=== PATIENT | female | born 1980 | race American Indian/Alaskan Native ===

== ENCOUNTER 2016-10-28 19:24 | Inpatient (IN) | payer BC ==
[2016-10-28] MEDS ORDERED: AMBIEN PO PRN (21:05)
[2016-10-28] MEDS ORDERED: ALUM-MAG HYDROX-SIMETH 200-200-20MG/5ML PO PRN (21:05)
[2016-10-28] MEDS ORDERED: SENOKOT S PO PRN (21:05)
[2016-10-28] MEDS ORDERED: COLACE PO PRN (21:05)
[2016-10-28] MEDS ORDERED: MILK OF MAGNESIA PO PRN (21:05)
[2016-10-28] MEDS ORDERED: DEEP SEA NS PRN (21:05)
[2016-10-28] MEDS ORDERED: TYLENOL PO PRN (21:05)
[2016-10-28] MEDS ORDERED: ZOFRAN IV PRN (21:05)
[2016-10-28] MEDS ORDERED: MYLICON PO PRN (21:05)
[2016-10-28] MEDS ORDERED: APRESOLINE ONE (21:07)
[2016-10-28] MEDS ORDERED: APRESOLINE IV PRN (21:41)
[2016-10-28] MEDS: NORMODYNE PO SCH (22:00)
[2016-10-28] MEDS ORDERED: LACTATED RINGERS 1,000 ML IV SCH (22:00)
[2016-10-28] MEDS ORDERED: CELESTONE SOLUSPAN IM SCH (22:00)
[2016-10-28 22:26] LABS: Eosinophils % (Auto) 0.7 % (0.0-4.3); Hematocrit 34.7 % (30.3-42.9); Hemoglobin 11.1 gm/dl (10.1-14.3); Mean Corpuscular HGB Conc 32 % (30-34); Mean Corpuscular Volume 73 fl (79-97); Platelet Count 208 K/mm3 (140-440); Red Blood Count 4.77 M/mm3 (3.65-5.03); White Blood Count 9.4 K/mm3 (4.5-11.0)
[2016-10-28 22:32] LABS: Mean Corpuscular Hemoglobin 23 pg (28-32)
[2016-10-28 22:36] LABS: Alanine Aminotransferase 19 units/L (7-56); Albumin 2.8 g/dL (3.9-5); Albumin/Globulin Ratio 0.8 %; Alkaline Phosphatase 125 units/L (35-129); Anion Gap 18 mmol/L; BUN/Creatinine Ratio 13.75; Blood Urea Nitrogen 11 mg/dL (7-17); Calcium 8.6 mg/dL (8.4-10.2); Carbon Dioxide 21 mmol/L (22-30); Chloride 102.6 mmol/L (98-107); Glucose 102 mg/dL (65-100); Lactate Dehydrogenase 267 units/L (91-180); Sodium 138 mmol/L (137-145); Total Protein 6.3 g/dL (6.3-8.2); Uric Acid 8.5 mg/dL (3.5-7.6)
[2016-10-28 22:40] LABS: Bacteria,Urine 4+ /HPF (Negative); Bilirubin,Urine NEG (Negative); Blood,Urine MOD (Negative); Ketones,Urine NEG (Negative); Leukocyte Esterase,Urine TR (Negative); Nitrite,Urine NEG (Negative); Urobilinogen,Urine < 2.0 mg/dL (<2.0)
--- NOTE | 2016-10-29 07:35 | Admit Criteria Form ---
Admission Criteria Documentation: OBSTETRIC AND GYNECOLOGIC DISEASE GRG Clinical Indications for Admission to Inpatient Care (Place 'X' for any and all applicable criteria): Hospital admission is needed for appropriate care of the patient because of 1 or more of the following (1)(2)(3): [ ]I. Hemodynamic instability, as indicated by 1 or more of the following (1)( 2)(3)(4)(5): [ ]a) Vital signs or other findings not as expected for chronic patient condition or baseline [ ]b) Instability indicated by 1 or more of the following: [ ]i) Hypotension [ ]ii) Symptomatic tachycardia unresponsive to treatment (eg, analgesia, fluids, sedation as indicated) [ ]iii) Inadequate perfusion indicated by 1 or more of the following: [ ]A. Lactic acidosis (greater than 2 mmol/ L) [ ]B. New abnormal capillary refill ( greater than 3 seconds) [ ]C. Reduced urine output [ ]D. New altered mental status [ ]iv) Orthostatic vital sign changes unresponsive to treatment (eg, fluids) [ ]v) Multiple IV fluid boluses required to maintain adequate blood pressure or perfusion [ ]vi) IV inotropic or vasopressor medication required to maintain adequate blood pressure or perfusion [ ]II. Obstetric infection requiring hospitalization indicated by 1 or more of the following(13)(14): [ ]a) Chorioamnionitis [ ]b) Endometritis (except mild endometritis) [ ]c) Pelvic abscess [ ]d) Peritonitis [ ]e) Septic pelvic thrombophlebitis [ ]III. Amniotic fluid or pulmonary embolism(4)(5)(6) [ ]IV. Suspected peritonitis or ectopic requiring monitoring beyond scope of 24 hours or observation care(7)(8) [ ]V. compromise requiring hospitalization indicated by ALL of the following(9)(10): [ ]a) compromise indicated by 1 or more of the following(11): [ ]i) Abnormal heart rate monitoring [ ]ii) Abnormal contraction stress test [ ]iii) Abnormal biophysical profile [ ]iv) Abnormal Doppler flow in vessels (ie, Doppler velocimetry) (12) [ ]b) Persistence of compromise indicators during evaluation and observation monitoring [ ]. Ovarian hyperstimulation syndrome requiring hospitalization[A] indicated by ALL of the following(15): [ ]a) Recent ovarian stimulation with gonadotropins, or evidence on ultrasound of spontaneous emergence of large number of ovarian follicles [ ]b) Evidence of severe ovarian hyperstimulation syndrome indicated by 1 or more of the following: [ ]i) Abdominal pain unresponsive to oral therapy [ ]ii) Acute respiratory distress syndrome [ ]iii) Electrolyte imbalance ( eg, hyponatremia, hyperkalemia) [ ]iv) Elevated liver enzymes [ ]v) Evidence of thromboembolism [ ]vi) Hemoconcentration (hematocrit greater than 45 % (0.45)) [ ]vii) Inability to maintain oral intake adequate to prevent hemoconcentration [ ]viii) Marked hypotension from baseline (eg, SBP 20 mmHg below patients usual pressure) [ ]ix) Oliguria or anuria [ ]x) Ovarian torsion [ ]xi) Pleural or pericardial effusion on x-ray or echocardiogram [ ]xii) Rapid increase in serum creatinine to greater than 1.2 mg/dL (106 micromoles/L) or creatinine clearance less than 50 mL/min/1.73m2 (0.84 mL/ sec/1.73m2) [ ]xiii) Ruptured ovarian cyst with hemorrhage [ ]xiv) Severe abdominal pain or peritoneal signs [ ]xv) Tense ascites that cannot be managed with paracentesis in outpatient setting [ ]VII.Pelvic infection requiring hospitalization indicated by 1 or more of the following (16): [ ]a) Outpatient treatment has failed or is not appropriate (eg, inpatient monitoring required) [ ]b) Pelvic abscess [ ]c) Surgical emergency cannot be excluded (eg, rigid abdomen) [ ]d) Vomiting precluding outpatient and observation care management VIII. loss complications requiring inpatient medical treatment indicated by 1 or more of the following (4)(7)(9): [ ]a) Fever [ ]b) Peritonitis [ ]c) Sepsis [ ]d) Severe abdominal pain [ ]IX. or patient requiring monitoring for severe heart failure, pulmonary disease, or other comorbid condition (eg, peripartum cardiomyopathy) (4)(17) [ ]X. patient with rupture of membranes requiring hospitalization indicated by ANY ONE of the following: [ ]a) Chorioamnionitis, cloudy amniotic fluid, or other evidence of infection [ ]b) compromise or other need for monitoring (11) [ ]c) Gestation longer than 23 weeks and ANY ONE of the following: [ ]i) Abnormal (noncephalic) presentation [ ]ii) Inadequate home environment (eg, home too far from hospital, unable to rapidly return to hospital) [ ]d) Temperature greater than 100.4 degrees F (38 degrees C)( oral) [ ]e) Threatened labor requiring monitoring beyond scope (eg, over 24 hours) of observation Care [ ] XI. complications, including severe lacerations, infections, or retained placenta (19) [ ] XII.Uterine bleeding with high-risk features indicated by ANY ONE of the following (4): [ ]a) Active major hemorrhage (eg, hemorrhage) [ ]b) Coagulopathy with active bleeding [ ]c) Gestational trophoblastic disease (eg, molar ) (20 ) [ ]d) (longer than 23 weeks) and ANY ONE of the following: [ ]i) Pain [ ]ii) Placental abruption, known or suspected [ ]iii) Placenta accrete, known or suspected(21) [ ]iv) Placenta previa, known or suspected [ ]v) Vasa previa [ ]e) Severe anemia [X ]XIII. Obstetric or Gynecologic Disease, condition or symptom for which ANY ONE of the following: [ X]a) Emergency and observation care have failed or are not considered appropriate ( Also use General Criteria: Observation Care Criteria as appropriate) [ ]b) Presence of a General Admission Criteria or Pediatric General Admission Criteria The original [facility] content created by [facility] has been revised. The portions of the content which have been revised are identified through the use of italic text or in bold, and [facility] has neither reviewed nor approved the modified material.All other unmodified content is copyright [facility]. Please see references footnoted in the original [facility] edition 2016
--- NOTE | 2016-10-29 09:19 | History and Physical Report ---
History of Present Illness Date of examination: 10/29/16 Date of admission: 10/28/16 21:05 Chief complaint: Preeclampsia and Class C DM History of present illness: 35-year-old at 33+6 weeks who presents for a primary delivery secondary to multiple obstetrical complications. The patient's is significant for a twin gestation complicated by type 2 diabetes requiring the use of subcutaneous insulin. The patient's history is also significant for chronic hypertension currently on labetalol with current findings significant with preeclampsia. The patient is advanced maternal age and has iron deficiency anemia treated with by mouth iron therapy. She initiated her care in the first trimester. GBS status is unknown. The recommendation from maternal medicine was to have the patient delivered for worsening clinical status. Past History Past Medical History: hypertension, diabetes, other (obesity) Past Surgical History: D&C Social history: - Obstetrical History Expected Date of Delivery: 12/11/16 Actual Gestation: 33 Week(s) 6 Day(s) : 3 Para: 0 Hx # Term Pregnancies: 0 Number of Pregnancies: 0 Spontaneous Abortions: 2 Induced : 0 Number of Living Children: 0 Medications and Allergies Allergies Allergy/AdvReac Type Severity Reaction Status Date / Time No Known Allergies Allergy Unverified 05/14/15 07:52 Home Medications Medication Instructions Recorded Confirmed Last Taken Type Aspirin BABY CHEW TAB 81 mg PO DAILY 10/29/16 10/29/16 Unknown History Colace CAP 100 mg PO DAILY 10/29/16 10/29/16 Unknown History Ferrous Sulfate 325 mg PO BID 10/29/16 10/29/16 10/28/16 09:00 History Insulin NPH, Human 24 units SUB-Q QAMDIAB 10/29/16 10/29/16 10/28/16 09:00 History Insulin NPH/Regular 24 units SUB-Q QHS 10/29/16 10/29/16 10/27/16 21:00 History Insulin Regular, Human 32 units SUB-Q QAMDIAB 10/29/16 10/29/16 10/28/16 09:00 History Labetalol 100 mg PO BID 10/29/16 10/29/16 10/28/16 09:00 History Vitamin 1 tab PO DAILY 10/29/16 10/29/16 10/28/16 09:00 History Active Meds: Active Medications Acetaminophen (Tylenol) 650 mg PO Q4H PRN PRN Reason: Pain MILD(1-3)/Fever >100.5/JAMES Al Hydrox/Mg Hydrox/Simethicone (Alum-Mag Hydrox-Simeth [phone]/5ml) 30 ml PO Q6H PRN PRN Reason: Indigestion Betamethasone Acet/Betameth SodPhos (Celestone Soluspan) 12 mg IM Q24H [facility] Stop: 10/29/16 22:01 Last Admin: 10/28/16 22:07 Dose: 12 mg Docusate Sodium (Colace) 100 mg PO Q12H PRN PRN Reason: Constipation Hydralazine HCl (Apresoline) 5 mg IV Q30MIN PRN PRN Reason: severe hypertension Last Admin: 10/28/16 21:26 Dose: 5 mg Lactated Ringer's (Lactated Ringers) 1,000 mls @ 75 mls/hr IV DIRECT ALESSIA Last Admin: 10/28/16 22:05 Dose: 75 mls/hr Insulin Human NPH (Novolin N) 24 unit SUB-Q QHS [facility] Last Admin: 10/29/16 00:59 Dose: 24 unit Insulin Human NPH (Novolin N) 24 unit SUB-Q QAMDIAB [facility] Insulin Human Regular (Novolin R) 32 units SUB-Q QAMDIAB [facility] Insulin Human Regular (Novolin R) 24 units SUB-Q QHS [facility] Insulin Human Regular (Novolin R) 16 units SUB-Q 1700 ALESSIA Labetalol HCl (Normodyne) 100 mg PO BID [facility] Last Admin: 10/28/16 22:00 Dose: 100 mg Magnesium Hydroxide (Milk Of Magnesia) 30 ml PO QHS PRN PRN Reason: Laxative Effect Multivitamins/Iron/Calcium ( Vitamin) 1 each PO QDAY [facility] Ondansetron HCl (Zofran) 4 mg IV Q6H PRN PRN Reason: Nausea And Vomiting Senna/Docusate Sodium (Senokot S) 2 tab PO Q12H PRN PRN Reason: Laxative Effect Simethicone (Mylicon) 80 mg PO Q6H PRN PRN Reason: Gas pain Sodium Chloride (Deep Sea) 2 spray NS Q4H PRN PRN Reason: Congestion Zolpidem Tartrate (Ambien) 10 mg PO QHS PRN PRN Reason: Sleep Last Admin: 10/29/16 03:17 Dose: 10 mg Review of Systems All systems: negative - Vital Signs Vital signs: Vital Signs Pulse BP 92 H 157/96 10/28/16 20:14 10/28/16 20:14 Temp Pulse Resp BP Pulse Ox 99 F 108 H 12 143/79 99 10/29/16 07:56 10/29/16 09:13 10/29/16 07:56 10/29/16 08:57 10/29/16 09:13 - Physical Exam Breasts: Positive: deferred Cardiovascular: Regular rate Lungs: Positive: Clear to auscultation Abdomen: Positive: normal appearance, soft Results Result Diagrams: 10/28/16 21:20 10/28/16 21:20 Abnormal lab results 10/28/16 10/28/16 10/28/16 Range/Units 21:09 21:20 21:20 MCV 73 L (79-97) fl MCH 23 L (28-32) pg RDW 24.0 H (13.2-15.2) % [place] % (Auto) 7.7 H (0.0-7.3) % Seg Neutrophils % 70.4 H (40.0-70.0) % Carbon Dioxide 21 L (22-30) mmol/L Glucose 102 H (65-100) mg/dL POC Glucose 107 H (70-105) Uric Acid 8.5 H (3.5-7.6) mg/dL Lactate Dehydrogenase 267 H (91-180) units/L Albumin 2.8 L (3.9-5) g/dL Ur Total Protein 24 Hr (2-200) Urine Total Protein (5-11.8) mg/dL 10/28/16 10/29/16 Range/Units 21:40 05:08 MCV (79-97) fl MCH (28-32) pg RDW (13.2-15.2) % [place] % (Auto) (0.0-7.3) % Seg Neutrophils % (40.0-70.0) % Carbon Dioxide (22-30) mmol/L Glucose (65-100) mg/dL POC Glucose 126 H (70-105) Uric Acid (3.5-7.6) mg/dL Lactate Dehydrogenase (91-180) units/L Albumin (3.9-5) g/dL Ur Total Protein 24 Hr 693.00 H (2-200) Urine Total Protein 33 H (5-11.8) mg/dL All other labs normal. Assessment and Plan - Patient Problems (1) Pre-eclampsia affecting with pre-existing hypertension, delivered , current hospitalization Current Visit: Yes Status: Acute Plan to address problem: Will proceed with delivery of twin gestation per maternal medicine recommendation (2) Twin gestation, monochorionic diamniotic Current Visit: Yes Status: Acute Qualifiers: Trimester: T (3) Insulin dependent diabetes mellitus Current Visit: Yes Status: Acute (4) Chronic hypertension affecting Current Visit: Yes Status: Acute (5) Unstable lie of fetus Current Visit: Yes Status: Acute Qualifiers: Fetus number: F
[2016-10-29] MEDS ORDERED: PRENATAL VITAMIN PO SCH (10:00)
[2016-10-29] MEDS: NORMODYNE PO SCH ×2 (10:17→22:28)
[2016-10-29] MEDS ORDERED: ZOFRAN IV PRN (12:04)
[2016-10-29] MEDS ORDERED: DILAUDID IV PRN (12:04)
[2016-10-29] MEDS ORDERED: NARCAN 0.4 MG/1 ML IV PRN ×2 (12:04→14:52)
[2016-10-29] MEDS ORDERED: BENADRYL IV PRN (12:04)
--- NOTE | 2016-10-29 12:04 | Anesthesia Consultation ---
Anesthesia Consult and Med Hx Date of service: 10/29/16 - Airway Anesthetic Teeth Evaluation: Good ROM Head & Neck: Adequate Mental/Hyoid Distance: Adequate Mallampati Class: Class II Intubation Access Assessment: Probably Good - Pre-Operative Health Status ASA Pre-Surgery Classification: ASA3 Proposed Anesthetic Plan: Epidural, Spinal - Pulmonary Hx Smoking: Yes (socially) Hx Asthma: Yes (as a child) COPD: No Hx Pneumonia: No Hx Sleep Apnea: No - Cardiovascular System Hx Hypertension: Yes (chtn) - Central Nervous System Hx Seizures: No Hx Psychiatric Problems: No - Gastrointestinal Hx Gastroesophageal Reflux Disease: Yes (Mild) - Endocrine Hx Renal Disease: No Hx End Stage Renal Disease: No Hx Insulin Dependent Diabetes: Yes Hx Non-Insulin Dependent Diabetes: Yes Hx Thyroid Disease: No Hx Hypothyroidism: No Hx Hyperthyroidism: No - Hematic Hx Anemia: Yes Hx Sickle Cell Disease: No (trait) - Other Systems Hx Alcohol Use: No Hx Cancer: No Hx Obesity: Yes (BMI 45.7) - Additional Comments Anesthesia Medical History Comments: Twin
[2016-10-29] MEDS ORDERED: TORADOL IV PRN (12:05)
--- NOTE | 2016-10-29 12:06 | Anesthesia Day of Surgery ---
Anesthesia Day of Surgery - Day of Surgery Patient Examined: Yes Patient H&P Reviewed: Yes Patient is NPO: Yes Beta Blockers: Yes
[2016-10-29] MEDS ORDERED: REGLAN IV ONE (12:36)
[2016-10-29] MEDS ORDERED: PEPCID IV ONE (12:36)
[2016-10-29] MEDS ORDERED: BICITRA PO ONE (12:36)
[2016-10-29] MEDS ORDERED: PITOCin/NS 20 UNIT/1000ML DRIP 20 UNITS/1,000 ML BAG IV SCH (13:00)
[2016-10-29] MEDS ORDERED: SODIUM CHLORIDE FLUSH SYRINGE 10 ML IV SCH ×2 (13:00→15:00)
[2016-10-29] MEDS ORDERED: ANCEF/STERILE WATER 2 GM/20 ML 2 GM/20 ML SYRINGE IV NR (13:00)
[2016-10-29] MEDS ORDERED: LACTATED RINGERS 1,000 ML IV SCH ×2 (13:00→15:00)
[2016-10-29] MEDS ORDERED: MORPHINE ONE (13:08)
[2016-10-29] MEDS ORDERED: ANCEF/STERILE WATER 2 GM/20 ML IV ONE (13:33)
[2016-10-29] MEDS ORDERED: WATER FOR IRRIG STERILE IR ONE (13:40)
[2016-10-29] MEDS ORDERED: NACL 0.9% IR ONE (13:40)
[2016-10-29] MEDS ORDERED: ZOFRAN ONE (14:12)
--- NOTE | 2016-10-29 14:43 | Procedure Note ---
OB Delivery Note - Delivery Date of Delivery: 10/29/16 Surgeon: FRANCO LEAL Estimated blood loss: other (800ml) - Section Preop diagnosis: other malpresentation, other (preeclampsia) Postop diagnosis: same section procedure: section, primary low transverse Disposition: PACU - Infant A at 1 minute: 7 at 5 minutes: 8 Gender: Female (weight 4 lbs. 12 oz.) B at 1 minute: 8 at 5 minutes: 8 Gender: Female (weight 4 lbs. 12 oz.)
[2016-10-29] MEDS: PITOCin/NS 20 UNIT/1000ML DRIP 20 UNITS/1,000 ML BAG IV SCH (14:44)
--- NOTE | 2016-10-29 14:50 | Operative Report ---
Operative Report Operative Report: Date of surgery: 10/29/2016 Preoperative diagnosis: at 33+6 weeks; chronic hypertension exacerbated by preeclampsia; insulin-dependent diabetes mellitus; dichorionic monoamniotic twin gestation; malpresentation of twin gestation Postoperative diagnosis: Same as above Procedure: Primary low-transverse delivery Surgeon: Lara Sheppard M.D. Anesthesia: Regional Estimated blood loss: 800 mL Findings: Twin A is a liveborn female with Apgars of 7 and 8 weight 7 lbs. 12 oz. Twin B is a liveborn female with Apgars of 8 and 8 weight 4 lbs. 12 oz. Indications: 35-year-old 0-0 at 33+6 weeks with a history complicated by multiple conditions to include insulin-dependent diabetes mellitus, chronic hypertension, preeclampsia, and malpresentation of the twin gestation. The patient was evaluated by maternal- medicine and was determined that the patient should be delivered Procedure: The patient was taken to the operating room and given regional anesthesia without complication. She was prepped and draped in a normal sterile fashion. A Pfannenstiel skin incision was made down to layer the fascia which was nicked in the midline extended laterally with the Bovie cautery. The superior aspect of the rectus fascia was grasped with Cachorro clamps x2 and the rectus muscles off sharply. This was done in inferior fashion as well. The rectus muscle midline and peritoneum entered bluntly. An Rick retractor was then inserted. A bladder blade was placed. The vesicouterine peritoneum was then entered sharply with Metzenbaum scissors. A bladder flap was created digitally. A low transverse uterine incision was then made and extended digitally. There was clear fluid upon entry into the uterine cavity. The amniotic sac of twin A was ruptured with the presenting part to be left arm. A manual version was performed in order to deliver the infant and vertex presentation. The cord was clamped and cut x2 and was passed off to pediatrics. The amniotic sac of twin B was ruptured with evidence of clear fluid. The presenting part of twin B were the feet. The lower extremities were delivered easily through the incision. The body and head delivered without difficulty. The cord was clamped and cut and the was passed to pediatrics and attendants. The placenta was then manually extracted. The umbilical cords were labeled with cord clamps. The uterus was then exteriorized and cleared of clots and debris. The uterine incision was then closed in a running locked fashion with 0 Vicryl additional imbricating stitch was applied for 2 layer closure. The posterior cul-de-sac was then copiously irrigated. The uterus was replaced back into the abdomen and pelvis were the gutters were then irrigated. The Rick retractor was then removed. The peritoneum was then reapproximated with 3-0 Vicryl incorporating the rectus muscle. The fascia was then closed with 0 Vicryl in a running fashion. The skin was then reapproximated with 3-0 Monocryl on a Braden needle subcuticular fashion. Steri-Strips to place across the incision and a Crede procedures performed at the end of the surgery. A pressure dressing was applied to the incision. The surgery productive of a twin A is a liveborn female with Apgars of 7 and 8 and a weight of 4 lbs. 12 oz. twin B is a liveborn female with Apgars of 8 and 8 weight 4 lbs. 12 oz. The patient was taken to the recovery room in stable condition. All sponge laps and needle counts correct x2.
[2016-10-29] MEDS ORDERED: TUCKS PAD TP PRN (14:52)
[2016-10-29] MEDS ORDERED: LANSINOH TP PRN (14:52)
[2016-10-29] MEDS ORDERED: MAGNESIUM SULFATE 4GM/100ML 4 GM/100 ML BAG IV ONE (15:00)
[2016-10-29] MEDS: MAGNESIUM SULFATE 40GM/1000ML 40 GM/1,000 ML BAG IV SCH (15:41)
--- NOTE | 2016-10-29 15:52 | Post Anesthesia Evaluation ---
- Post Anesthesia Evaluation Patient Participated: Yes Airway Patent: Yes Stable Respiratory Function: Yes Temp > 96.8F: Yes Pain Manageable: Yes Adequeate Hydration: Yes Anesthesia Complications: No Block Receding Appropriately: Yes
[2016-10-29] MEDS ORDERED: PHENERGAN PO PRN (15:53)
[2016-10-29] MEDS ORDERED: PHENERGAN PR PRN (15:53)
[2016-10-29] MEDS ORDERED: D50W (25GM) IV PRN (18:09)
[2016-10-30] MEDS: MOTRIN PO PRN ×4 (02:06→22:21)
[2016-10-30] MEDS: PITOCin/NS 20 UNIT/1000ML DRIP 20 UNITS/1,000 ML BAG IV SCH (04:38)
[2016-10-30 05:57] LABS: Hematocrit 29.4 % (30.3-42.9); Hemoglobin 9.4 gm/dl (10.1-14.3)
[2016-10-30] MEDS: NOVOLOG SUB-Q SCH ×4 (08:10→22:21)
[2016-10-30] MEDS ORDERED: BENADRYL PO PRN (08:22)
--- NOTE | 2016-10-30 08:41 | Progress Note ---
Assessment and Plan - Patient Problems (1) Pre-eclampsia affecting with pre-existing hypertension, delivered , current hospitalization Current Visit: Yes Status: Acute Plan to address problem: Patient will complete 24 hours of magnesium therapy Will continue to monitor glucose and blood pressure closely Continue sliding scale insulin until patient resumes regular diet (2) Twin gestation, monochorionic diamniotic Current Visit: Yes Status: Acute Qualifiers: Trimester: T (3) Insulin dependent diabetes mellitus Current Visit: Yes Status: Acute (4) Chronic hypertension affecting Current Visit: Yes Status: Acute (5) Unstable lie of fetus Current Visit: Yes Status: Acute Qualifiers: Fetus number: F Subjective - Subjective Date of service: 10/30/16 Interval history: The patient is without any significant complaints. She is currently receiving magnesium therapy for preeclampsia. She is also receiving a sliding scale insulin to maintain glucose levels which would have been in normal range. She states that her pain has been well controlled. Patient reports: no flatus : in NICU Objective - Vital Signs Latest vital signs: Vital Signs Temp Pulse Pulse Resp BP BP Pulse Ox 10/30/16 08:37 18 10/30/16 06:14 98.2 F 85 20 127/68 10/30/16 04:30 98.4 F 76 20 124/73 10/30/16 02:16 98.6 F 101 H 20 134/67 10/30/16 00:00 98.4 F 104 H 20 120/72 10/29/16 22:28 97 H 148/75 10/29/16 22:15 148/75 10/29/16 20:00 98.1 F 105 H 20 140/70 10/29/16 18:26 98.2 F 98 H 20 140/66 10/29/16 17:00 97.7 F 98 H 18 138/81 10/29/16 16:25 97.9 F 17 10/29/16 16:20 89 22 137/77 99 10/29/16 16:15 86 20 137/77 99 10/29/16 16:10 96 H 15 141/86 100 10/29/16 16:05 92 H 26 H 141/86 99 10/29/16 16:00 95 H 21 139/85 99 10/29/16 15:55 89 17 141/77 100 10/29/16 15:50 92 H 26 H 149/87 97 10/29/16 15:45 89 13 136/73 100 10/29/16 15:40 100 H 13 116/71 99 10/29/16 15:35 97 H 13 141/81 99 10/29/16 15:30 100 H 20 128/62 99 10/29/16 15:25 94 H 13 137/82 99 10/29/16 15:20 95 H 18 135/75 98 10/29/16 15:15 79 25 H 136/73 97 10/29/16 15:10 83 14 124/77 98 10/29/16 15:05 100 H 14 124/84 98 10/29/16 15:00 91 H 26 H 135/75 98 10/29/16 14:55 91 H 24 133/77 100 10/29/16 14:50 99 H 16 131/68 100 10/29/16 14:45 104 H 12 130/72 100 10/29/16 14:43 100 10/29/16 12:27 99 H 149/72 10/29/16 11:59 102 H 132/75 10/29/16 11:28 100 H 158/72 10/29/16 10:57 97 H 136/74 10/29/16 10:54 98 H 100 10/29/16 10:49 100 H 99 10/29/16 10:44 101 H 98 10/29/16 10:39 106 H 100 10/29/16 10:34 101 H 99 10/29/16 10:29 100 H 160/75 99 10/29/16 10:24 100 H 99 10/29/16 10:19 98 H 100 10/29/16 10:17 98 H 176/82 10/29/16 10:14 102 H 100 10/29/16 10:09 95 H 100 10/29/16 10:04 94 H 100 10/29/16 09:59 96 H 176/82 99 10/29/16 09:33 94 H 100 10/29/16 09:28 96 H 93 10/29/16 09:27 99 H 143/79 10/29/16 09:23 94 H 100 10/29/16 09:18 98 H 100 10/29/16 09:13 108 H 99 10/29/16 09:05 102 H 98 10/29/16 09:00 98 H 99 10/29/16 08:57 92 H 143/79 10/29/16 08:55 90 100 10/29/16 08:50 92 H 100 10/29/16 08:45 88 100 10/29/16 08:40 98 H 100 Intake and Output 10/29/16 10/30/16 10/30/16 22:59 06:59 14:59 Intake Total 620 120 Output Total 500 1500 Balance 120 -1380 Intake: IV 500 Oral 120 Intake, Free Water 120 Output: Urine 500 1500 Indwelling Catheter 300 1500 Other: Total, Intake Amount 120 Total, Output Amount 300 900 Voiding Method Indwelling Catheter Estimated Blood Loss 1,000 - Exam Abdomen: Present: normal appearance, soft Incision: Present: dressed - Labs Labs: Abnormal lab results 10/30/16 Range/Units 05:26 Hgb 9.4 L (10.1-14.3) gm/dl Hct 29.4 L (30.3-42.9) %
[2016-10-30] MEDS: NORMODYNE PO SCH ×2 (11:14→22:20)
[2016-10-30] MEDS: MYLICON PO PRN ×2 (11:14→18:12)
[2016-10-30] MEDS: PRENATAL VITAMIN PO SCH (11:14)
[2016-10-30] MEDS: MAGNESIUM SULFATE 40GM/1000ML 40 GM/1,000 ML BAG IV SCH (11:16)
[2016-10-31] MEDS: MOTRIN PO PRN (05:32)
[2016-10-31] MEDS ORDERED: BOOSTRIX IM ONE (06:00)
[2016-10-31] MEDS: NORMODYNE PO SCH ×2 (11:00→22:36)
[2016-10-31] MEDS: PRENATAL VITAMIN PO SCH (11:00)
--- NOTE | 2016-10-31 16:13 | Progress Note ---
Assessment and Plan O; BP: 140/70-90 BS: 127, 144, 169, 112 PP H/H: 9.4/29.4 A: POD # 2 S/P primary C/S @ 33 weeks twins with preeclampsia Diabetic CHTN with superimposed preeclampsia P: Continue PP orders order abd binder Subjective - Subjective Date of service: 10/31/16 Patient reports: appetite normal, voiding normally, flatus, pain poorly controlled (only taking Motrin for pain), ambulating normally : doing well, in NICU Objective - Vital Signs Latest vital signs: Vital Signs Temp Pulse Pulse Resp BP BP 10/31/16 11:50 98.7 F 90 20 144/72 10/31/16 08:19 98.9 F 88 20 136/70 10/31/16 04:10 98.9 F 86 20 148/70 10/31/16 00:00 98.4 F 88 20 152/88 10/30/16 22:20 78 142/95 10/30/16 20:00 98.6 F 106 H 20 149/86 10/30/16 16:13 18 Intake and Output 10/31/16 10/31/16 10/31/16 06:59 14:59 22:59 Intake Total 480 600 Balance 480 600 Intake: Oral 480 360 Intake, Free Water 240 Other: Total, Intake Amount 480 360 # Voids Void 1 1 # Bowel Movements 1 - Exam Breasts: Present: deferred Lungs: Present: Normal air movement Abdomen: Present: normal appearance, soft, distention (mild) Vulva: both: normal Uterus: Present: normal, firm, fundal height below umbilicus. Absent: bogginess Extremities: Present: normal Incision: Present: normal, dry, intact, other (open to air, steri strips in place) - Labs Labs: Abnormal lab results 10/29/16 10/30/16 10/30/16 Range/Units 22:21 07:46 11:04 POC Glucose 108 H 127 H 144 H (70-105) 10/30/16 10/30/16 10/31/16 Range/Units 13:51 22:07 11:50 POC Glucose 169 H 188 H 112 H (70-105)
[2016-10-31] MEDS: PERCOCET 5/325 PO PRN ×2 (18:39→23:46)
[2016-10-31] MEDS: FEOSOL PO SCH (22:33)
[2016-10-31] MEDS: NOVOLOG SUB-Q SCH (22:47)
[2016-11-01] MEDS: NOVOLOG SUB-Q SCH ×3 (08:40→17:33)
--- NOTE | 2016-11-01 09:01 | Progress Note ---
Assessment and Plan - Patient Problems (1) Pre-eclampsia affecting with pre-existing hypertension, delivered , current hospitalization Current Visit: Yes Status: Acute (2) Twin gestation, monochorionic diamniotic Current Visit: Yes Status: Acute Qualifiers: Trimester: T (3) Insulin dependent diabetes mellitus Current Visit: Yes Status: Acute (4) Chronic hypertension affecting Current Visit: Yes Status: Acute Plan to address problem: will increase labetalol dose to 400mg BID (5) Unstable lie of fetus Current Visit: Yes Status: Acute Qualifiers: Fetus number: F Subjective - Subjective Date of service: 11/01/16 Interval history: Patient reports being able to void. Pain is controlled better. Elevated blood pressures. No symptoms. Patient reports: appetite normal, voiding normally, pain well controlled : doing well, in NICU Objective - Vital Signs Latest vital signs: Vital Signs Temp Pulse Pulse Pulse Resp BP BP 11/01/16 08:46 99.0 F 91 H 16 11/01/16 04:25 99.1 F 88 20 11/01/16 00:45 98.3 F 86 20 10/31/16 22:36 88 154/73 10/31/16 22:30 99.0 F 88 20 10/31/16 16:34 99.2 F 98 H 20 140/74 10/31/16 11:50 98.7 F 90 20 144/72 10/31/16 11:00 136/70 BP 11/01/16 08:46 157/85 11/01/16 04:25 138/61 11/01/16 00:45 147/67 10/31/16 22:36 10/31/16 22:30 154/73 10/31/16 16:34 10/31/16 11:50 10/31/16 11:00 Intake and Output 10/31/16 11/01/16 11/01/16 22:59 06:59 14:59 Intake Total 480 240 Balance 480 240 Intake: Oral 240 240 Intake, Free Water 240 Other: Total, Intake Amount 120 120 # Voids Void 1 1 # Bowel Movements 1 - Exam Uterus: Present: normal, firm Incision: Present: intact - Labs Labs: Abnormal lab results 10/31/16 10/31/16 10/31/16 Range/Units 11:50 17:22 22:33 POC Glucose 112 H 106 H 146 H (70-105)
[2016-11-01] MEDS: FEOSOL PO SCH ×2 (10:38→23:02)
[2016-11-01] MEDS: PRENATAL VITAMIN PO SCH (10:38)
[2016-11-01] MEDS: NORMODYNE PO SCH ×2 (10:39→23:02)
[2016-11-01] MEDS: PERCOCET 5/325 PO PRN (12:21)
[2016-11-01] MEDS: MOTRIN PO PRN (23:08)
[2016-11-02] MEDS: PERCOCET 5/325 PO PRN (08:04)
[2016-11-02] MEDS: NOVOLOG SUB-Q SCH ×2 (08:05→11:40)
--- NOTE | 2016-11-02 08:19 | Progress Note ---
Assessment and Plan A/P POD# 4 c/s twin, chronic HTN and type 2 DM 1. doing well 2. ambulating well 3. tolerating diet 4. pain well controlled 5. BP on labetolol 400 mg po bid 6. incision c/d/ i 7. PP course uneventful . D/C paramaters met 8. d/c home with f/u in 1 week Subjective - Subjective Date of service: 11/02/16 Principal diagnosis: c/s twins , chronic HTN and type 2 Dm Patient reports: appetite normal, voiding normally, pain well controlled, flatus , ambulating normally : doing well, nursing well Objective - Vital Signs Latest vital signs: Vital Signs Temp Pulse Pulse Pulse Resp BP BP 11/02/16 05:00 98.3 F 84 20 118/67 11/02/16 01:10 98.1 F 88 20 124/67 11/01/16 23:02 90 160/82 11/01/16 22:50 98.3 F 90 20 160/82 11/01/16 17:11 97.8 F 89 20 11/01/16 12:47 98.7 F 86 18 11/01/16 10:39 97 H 167/95 11/01/16 10:35 97 H 167/95 11/01/16 08:46 99.0 F 91 H 16 BP 11/02/16 05:00 11/02/16 01:10 11/01/16 23:02 11/01/16 22:50 11/01/16 17:11 137/66 11/01/16 12:47 156/86 11/01/16 10:39 11/01/16 10:35 168/97 11/01/16 08:46 157/85 Intake and Output 11/01/16 11/02/16 11/02/16 22:59 06:59 14:59 Intake Total 120 120 Balance 120 120 Intake: Oral 120 120 Other: Total, Intake Amount 120 120 # Voids Void 1 1 - Exam Breasts: Present: normal Cardiovascular: Present: Regular rate, Normal S1 Lungs: Present: Clear to auscultation, Normal air movement Abdomen: Present: normal appearance, soft, normal bowel sounds. Absent: distention, tenderness Vulva: both: normal Uterus: Present: normal, firm, fundal height below umbilicus (3cm below ). Absent: bogginess, tenderness Extremities: Present: normal Deep Tendon Reflex Grade: Normal +2 Incision: Present: normal, dry, intact - Labs Labs: Abnormal lab results 11/01/16 11/01/16 11/01/16 Range/Units 12:39 17:00 22:59 POC Glucose 131 H 140 H 117 H (70-105)
--- NOTE | 2016-11-02 08:22 | Discharge Summary ---
Providers - Providers Date of Admission: 10/28/16 19:24 Date of discharge: 11/02/16 Attending physician: AGNIESZKA MANCERA MD Primary care physician: JUNIOR ACCOUNT MANAGER Hospitalization Reason for admission: section Delivery: Procedure: section Episiotomy: none Laceration: none Incision: normal, dry, intact complications: none Discharge diagnosis: delivery [place] baby: twins Condition at discharge: Good Disposition: DISCHARGED TO HOME OR SELFCARE Plan - Discharge Medications Prescriptions: Docusate Sodium [Colace] 100 mg PO BID PRN #60 capsule PRN Reason: Constipation Ibuprofen [Motrin] 800 mg PO Q8HR PRN #60 tablet PRN Reason: Pain Labetalol [Normodyne TAB] 400 mg PO BID #30 tablet Oxycodone HCl/Acetaminophen [Percocet 7.5/325 mg] 1 each PO Q6HR PRN #45 tablet PRN Reason: Pain - Provider Discharge Summary Activity: routine, no sex for 6 weeks Diet: routine Instructions: routine Additional instructions: [] Smoking cessation referral if applicable(refer to patient education folder for contact #) [] Refer to [facility] Booklet Call your doctor immediately for: * Fever > 100.5 * Heavy vaginal bleeding ( >1 pad per hour) * Severe persistent headache * Shortness of breath * Reddened, hot, painful area to leg or breast * Drainage or odor from incision. * Keep incision clean and dry at all times and follow doctor's instructions regarding bathing/showering - Follow up plan Follow up: MARIKA MIRANDA MD [Staff Physician] - 7 Days
[2016-11-02] MEDS: FEOSOL PO SCH (09:13)
[2016-11-02] MEDS: NORMODYNE PO SCH (09:13)
[2016-11-02] MEDS: PRENATAL VITAMIN PO SCH (09:13)
[2016-11-02 13:02] VITALS: BP 142/90
== END 2016-11-02 12:50 | disposition home or self-care (01) | DRG 765 ==
LOC: OBSVTOIN 19:24 → LD 19:24 → INTOOBSV 21:05 → OBSVTOIN 21:05 → OB 10-29 17:05
PROVIDERS: ADMIT Obstetrics & Gynecology; ATTEND Obstetrics & Gynecology
PROC: 10D00Z1 Extraction of Products of Conception, Low, Open Approach (ICD-10-PCS; principal; 2016-10-29)
DX: O30.033 Twin pregnancy, monochorionic/diamniotic, third trimester (principal); Z68.42 Body mass index [BMI] 45.0-49.9, adult; O11.4 Pre-existing hypertension with pre-eclampsia, complicating childbirth; O24.92 Unspecified diabetes mellitus in childbirth; O32.0XX0 Maternal care for unstable lie, not applicable or unspecified; O99.214 Obesity complicating childbirth; E66.9 Obesity, unspecified; O99.013 Anemia complicating pregnancy, third trimester; D64.9 Anemia, unspecified; O99.62 Diseases of the digestive system complicating childbirth; K92.89 Other specified diseases of the digestive system; O99.52 Diseases of the respiratory system complicating childbirth; O99.334 Smoking (tobacco) complicating childbirth; F17.200 Nicotine dependence, unspecified, uncomplicated; J45.909 Unspecified asthma, uncomplicated; K21.9 Gastro-esophageal reflux disease without esophagitis; Z3A.33 33 weeks gestation of pregnancy; Z37.2 Twins, both liveborn; O09.523 Supervision of elderly multigravida, third trimester
CPT/HCPCS: 36415; 80053; 81001; 82565; 82962; 83615; 84156; 84550; 85014; 85018; 85025; 86850; 86900; 86901; 88307; 90471; 90715; 99211; G0463; J0360; J0690; J0702; J1815; J2270; J2405; J2590; J2765; J3475; J7120

== ENCOUNTER 2017-11-03 10:59 | Inpatient (IN) | payer BC ==
[2017-11-03] MEDS ORDERED: LACTATED RINGERS 1,000 ML IV SCH (13:30)
[2017-11-03] MEDS ORDERED: APRESOLINE IV PRN (13:30)
[2017-11-03 14:31] LABS: Hematocrit 33.1 % (30.3-42.9); Mean Corpuscular HGB Conc 33 % (30-34); Mean Corpuscular Hemoglobin 26 pg (28-32); Mean Corpuscular Volume 79 fl (79-97); Platelet Count 270 K/mm3 (140-440); Red Blood Count 4.17 M/mm3 (3.65-5.03); Red Cell Distribution Width 17.6 % (13.2-15.2)
[2017-11-03 14:43] LABS: Alanine Aminotransferase 38 units/L (7-56); Uric Acid 6.1 mg/dL (3.5-7.6)
[2017-11-03 16:16] LABS: Bilirubin,Urine NEG (Negative); Blood,Urine LG (Negative); Color,Urine Yellow (Yellow); Mucus,Urine FEW /HPF; Urobilinogen,Urine < 2.0 mg/dL (<2.0)
[2017-11-03] MEDS ORDERED: MOTRIN PO PRN (18:38)
[2017-11-03] MEDS ORDERED: PERCOCET 5/325 PO PRN (18:38)
[2017-11-03] MEDS ORDERED: D50W (25GM) Syringe IV PRN (18:41)
--- NOTE | 2017-11-03 18:45 | History and Physical Report ---
History of Present Illness Date of examination: 11/03/17 Date of admission: 11/03/17 13:33 Chief complaint: sent from the clinic with elevated blood pressures History of present illness: Pt is a 36 year old -[place] female s/p repeat section at term on 10/26/17 with a h/o chronic hypertension on presents with severe range blood pressures to the office despite consistently taking her labetalol. She also has Type II Diabetes Mellitus on insulin while , but currently on Metformin. She reports intermittent headache, but denies blurry vision and right upper quadrant pain. Past History Past Medical History: hypertension, diabetes, hematologic disorders (obesity, Sickle Cell Trait ), other (obesity) Past Surgical History: section (10/26/17; 10/2016), [employer] History: fibroids, herpes Family/Genetic History: diabetes, heart disease, hypertension Social history: no significant social history - Obstetrical History : 4 Medications and Allergies Allergies Allergy/AdvReac Type Severity Reaction Status Date / Time latex AdvReac Rash Verified 10/26/17 07:30 Home Medications Medication Instructions Recorded Confirmed Last Taken Type Aspirin BABY CHEW TAB 81 mg PO DAILY 10/29/16 10/26/17 10/25/17 History Insulin Regular, Human 10 units SUB-Q QAMDIAB 10/29/16 10/26/17 10/25/17 History Labetalol 600 mg PO BID 10/29/16 10/26/17 10/26/17 History Vitamin 1 tab PO DAILY 10/29/16 10/26/17 10/25/17 History Insulin NPH, Human [NovoLIN N] 22 unit SQ QHS 10/26/17 10/26/17 10/25/17 History Insulin NPH, Human [NovoLIN N] 26 unit SQ QAMDIAB 10/26/17 10/26/17 10/25/17 History Insulin Regular, Human [Humulin R] 18 units SUB-Q QPM 10/26/17 10/26/17 History Valacyclovir HCl [Valtrex] 1 tab PO QDAY 10/26/17 10/26/17 10/25/17 History Clindamycin [Clindamycin CAP] 300 mg PO Q6H #28 capsule 10/29/17 Unknown Rx Ibuprofen [Motrin] 800 mg PO Q8HR PRN #30 tablet 10/29/17 Unknown Rx Labetalol [Normodyne TAB] 200 mg PO BID #60 tablet 10/29/17 Unknown Rx oxyCODONE /ACETAMINOPHEN [Percocet 1 tab PO Q6HR PRN #40 tablet 10/29/17 Unknown Rx 5/325] Active Meds: Active Medications Dextrose (D50w (25gm) Syringe) 50 ml IV PRN PRN PRN Reason: Hypoglycemia Hydralazine HCl (Apresoline) 5 mg IV Q30MIN PRN PRN Reason: Hypertension Last Admin: 11/03/17 14:35 Dose: 5 mg Lactated Ringer's (Lactated Ringers) 1,000 mls @ 125 mls/hr IV DIRECT ALESSIA Magnesium Sulfate (Magnesium Sulfate 40gm/1000ml) 40 gm in 1,000 mls @ 50 mls/ hr IV DIRECT ALESSIA Magnesium Sulfate (Magnesium Sulfate 4gm/100ml) 4 gm in 100 mls @ 300 mls/hr IV ONCE ONE Stop: 11/03/17 19:19 Ibuprofen (Motrin) 600 mg PO Q6H PRN PRN Reason: Pain, Mild (1-3) Insulin Human Regular (Humulin R) 0 units SUB-Q ACHS ALESSIA; Protocol Labetalol HCl (Normodyne) 300 mg PO BID ALESSIA Metformin HCl (Glucophage) 500 mg PO BIDDIAB ALESSIA Oxycodone/Acetaminophen (Percocet 5/325) 1 tab PO Q6H PRN PRN Reason: Pain, Moderate (4-6) Review of Systems All systems: negative - Vital Signs Vital signs: Vital Signs Pulse BP 72 176/106 11/03/17 14:35 11/03/17 14:35 Temp Pulse Resp BP Pulse Ox 72 176/106 11/03/17 14:35 11/03/17 14:35 Results Result Diagrams: 11/03/17 14:06 11/03/17 14:06 Abnormal lab results 11/03/17 11/03/17 11/03/17 Range/Units 14:06 14:06 15:35 MCH 26 L (28-32) pg RDW 17.6 H (13.2-15.2) % Creatinine 0.6 L (0.7-1.2) mg/dL POC Glucose (70-105) Lactate Dehydrogenase 427 H (91-180) units/L Urine WBC (Auto) 17.0 H (0.0-6.0) /HPF 11/03/17 11/03/17 Range/Units 16:43 18:28 MCH (28-32) pg RDW (13.2-15.2) % Creatinine (0.7-1.2) mg/dL POC Glucose 51 L 109 H (70-105) Lactate Dehydrogenase (91-180) units/L Urine WBC (Auto) (0.0-6.0) /HPF All other labs normal. Assessment and Plan A: Chronic hypertension with superimposed preeclampsia s/p repeat section on 10/26/17 Morbid Obesity Type II Diabetes P: Admit to hospital for blood pressure control and magnesium sulfate for seizure prophylaxis Closely monitor clinical status
[2017-11-03] MEDS ORDERED: MAGNESIUM SULFATE 4GM/100ML 4 GM/100 ML BAG IV ONE (19:00)
[2017-11-03] MEDS: MAGNESIUM SULFATE 40GM/1000ML 40 GM/1,000 ML BAG IV SCH (20:29)
[2017-11-03] MEDS ORDERED: NORMODYNE PO SCH (22:00)
[2017-11-03] MEDS: HumuLIN R SUB-Q SCH (22:42)
[2017-11-03] MEDS: LACTATED RINGERS 1,000 ML IV SCH (23:59)
--- NOTE | 2017-11-04 08:40 | Progress Note ---
Assessment and Plan A/P HD#1 for pree on mag for 24 hrs antihypertensive labetolol 300 mg still with elevated pressures addition of procardia 90 mg qd UTI + wbc in urine ( addition of rocephin ) will send home with macrobid upon discharge mag checks continue PP care wound infection prioe ( continue clinda as rx by Dr. Guzman) Subjective - Subjective Date of service: 11/04/17 Principal diagnosis: PP preeclampsia Patient reports: appetite normal, voiding normally, pain well controlled, flatus , ambulating normally Objective - Vital Signs Latest vital signs: Vital Signs Temp Pulse Resp BP BP Pulse Ox 11/04/17 07:25 98 F 81 20 164/94 11/04/17 05:10 20 165/91 11/04/17 02:11 90 148/79 96 11/04/17 00:11 98.2 F 82 20 150/82 96 11/03/17 21:53 85 158/95 11/03/17 21:27 98.6 F 20 174/95 11/03/17 16:15 165/92 11/03/17 15:35 161/92 11/03/17 15:00 168/98 11/03/17 14:40 171/103 11/03/17 14:35 72 176/106 176/106 11/03/17 13:50 98.7 F 77 20 173/102 Intake and Output 11/03/17 11/04/17 11/04/17 23:59 07:59 15:59 Intake Total 240 120 Output Total 700 3500 Balance -460 -3380 Intake: Intake, Free Water 240 120 Output: Urine 700 3500 Void 700 3500 Other: Total, Output Amount 700 900 # Voids Void 1 1 - Exam Breasts: Present: normal Cardiovascular: Present: Regular rate, Normal S1 Lungs: Present: Clear to auscultation, Normal air movement Abdomen: Present: normal appearance, soft, normal bowel sounds. Absent: distention, tenderness, guarding Vulva: both: normal Uterus: Present: normal, firm Extremities: Present: normal Deep Tendon Reflex Grade: Normal +2 Incision: Present: skin - Labs Labs: Abnormal lab results 11/03/17 11/03/17 11/03/17 Range/Units 14:06 14:06 15:35 MCH 26 L (28-32) pg RDW 17.6 H (13.2-15.2) % Creatinine 0.6 L (0.7-1.2) mg/dL POC Glucose (70-105) Magnesium (1.7-2.3) mg/dL Lactate Dehydrogenase 427 H (91-180) units/L Urine WBC (Auto) 17.0 H (0.0-6.0) /HPF 11/03/17 11/03/17 11/04/17 Range/Units 16:43 18:28 00:37 MCH (28-32) pg RDW (13.2-15.2) % Creatinine (0.7-1.2) mg/dL POC Glucose 51 L 109 H (70-105) Magnesium 3.90 H (1.7-2.3) mg/dL Lactate Dehydrogenase (91-180) units/L Urine WBC (Auto) (0.0-6.0) /HPF 11/04/17 Range/Units 05:35 MCH (28-32) pg RDW (13.2-15.2) % Creatinine (0.7-1.2) mg/dL POC Glucose (70-105) Magnesium 4.70 H (1.7-2.3) mg/dL Lactate Dehydrogenase (91-180) units/L Urine WBC (Auto) (0.0-6.0) /HPF
[2017-11-04] MEDS ORDERED: PROCARDIA XL PO SCH (10:00)
[2017-11-04] MEDS ORDERED: ROCEPHIN/NS 1 GM/50 ML 1 GM/50 ML BAG IV SCH (10:00)
[2017-11-04] MEDS ORDERED: NORMODYNE PO SCH (11:00)
[2017-11-04] MEDS: cefTRIAXone 1 GM in NACL 0.9% 20 ML IV SCH (11:52)
[2017-11-04] MEDS: LACTATED RINGERS 1,000 ML IV SCH (14:09)
[2017-11-04] MEDS: CLEOCIN PO SCH ×2 (14:09→20:46)
[2017-11-04] MEDS: MAGNESIUM SULFATE 40GM/1000ML 40 GM/1,000 ML BAG IV SCH (17:25)
[2017-11-04] MEDS: GLUCOPHAGE PO SCH (17:30)
[2017-11-04] MEDS ORDERED: NORMODYNE PO ONE (22:00)
[2017-11-04] MEDS: HumuLIN R SUB-Q SCH (22:00)
[2017-11-05] MEDS: CLEOCIN PO SCH ×3 (09:14→21:06)
[2017-11-05] MEDS: NORMODYNE PO SCH ×2 (09:14→22:07)
[2017-11-05] MEDS: HumuLIN R SUB-Q SCH ×3 (09:18→17:24)
[2017-11-05] MEDS: GLUCOPHAGE PO SCH ×2 (09:19→17:24)
[2017-11-05] MEDS: cefTRIAXone 1 GM in NACL 0.9% 20 ML IV SCH (09:20)
--- NOTE | 2017-11-05 10:00 | Progress Note ---
Assessment and Plan A/P HD#2 for pree on mag for 24 hrs antihypertensive labetolol 500 mg still with elevated pressures addition of procardia 90 mg qd UTI + wbc in urine ( addition of rocephin ) will send home with macrobid upon discharge mag off if BP stable will discharge tonight or in am Subjective - Subjective Date of service: 11/05/17 Principal diagnosis: PP preeclampsia Patient reports: appetite normal, voiding normally, pain well controlled, flatus , ambulating normally Objective - Vital Signs Latest vital signs: Vital Signs Temp Pulse Resp BP BP 11/05/17 04:05 98.1 F 76 20 130/61 11/05/17 00:00 98.0 F 85 20 139/71 11/04/17 21:24 86 140/88 11/04/17 20:35 98.4 F 84 20 153/88 11/04/17 18:00 158/94 11/04/17 16:15 97.8 F 77 16 152/85 11/04/17 13:30 138/81 11/04/17 10:46 84 176/99 11/04/17 10:45 176/99 Intake and Output 11/04/17 11/05/17 11/05/17 23:59 07:59 15:59 Intake Total 1000 240 Output Total 800 Balance 1000 -560 Intake: IV 1000 MAGNESIUM SULFATE 40GM/ 1000 1000ML 40 gm In 1,000 ml @ 2 GM/HR 50 mls/hr IV DIRECT ALESSIA Rx#:[id number] Oral 240 Output: Urine 800 Void 800 Other: Total, Intake Amount 240 Total, Output Amount 800 Voiding Method Toilet # Voids Void 4 - Exam Breasts: Present: normal Cardiovascular: Present: Regular rate, Normal S1 Lungs: Present: Clear to auscultation, Normal air movement Abdomen: Present: normal appearance, soft, normal bowel sounds. Absent: distention, tenderness, guarding Vulva: both: normal Uterus: Present: normal, firm, fundal height below umbilicus. Absent: bogginess , tenderness Extremities: Present: normal Deep Tendon Reflex Grade: Normal +2 Incision: Present: normal - Labs Labs: Abnormal lab results 11/04/17 11/04/17 11/04/17 Range/Units 16:07 17:34 18:30 POC Glucose 111 H (70-105) Magnesium 5.50 H 4.60 H (1.7-2.3) mg/dL 11/04/17 11/05/17 Range/Units 23:51 09:19 POC Glucose 119 H 59 L (70-105) Magnesium (1.7-2.3) mg/dL
[2017-11-05 21:08] LABS: Bilirubin,Urine NEG (Negative); Blood,Urine MOD (Negative); Color,Urine Yellow (Yellow); Protein,Urine <15 mg/dL mg/dL (Negative); Urobilinogen,Urine < 2.0 mg/dL (<2.0); WBC,Urine < 1.0 /HPF (0.0-6.0)
--- NOTE | 2017-11-06 00:37 | Consultation ---
History of Present Illness - Reason for Consult Consult date: 11/06/17 hypertension - History of Present Illness 37 year old woman with history of HTN, DM is being consulted for management of hypertension. She is s/p and has been maintained in labetalol 500mg BID during the . Prior to , she was taking 600mg BID. Her blood pressure was not controlled, her labetalol was just increased from 500 to 600 mg BID. She is also on hydralazine as needed. Currently has no complaints. Constitutional: no weight loss, chills Ears, eyes, nose, mouth and throat: no nasal congestion, no nasal discharge, no sinus pressure, no vision change, no red eye. Neck: No neck pain or rigidity. Cardiovascular: no chest pain, palpitations Respiratory: No shortness of breath, no cough Gastrointestinal: no abdominal pain, hematochezia Genitourinary : no frequency , no hematuria Musculoskeletal: no joint swelling or muscle ache Integumentary: no rash, no pruritis Neurological: no parathesias, no numbness, no focal weakness Endocrine: no cold or heat intolerance, no polyuria or polydipsia Hematologic/Lymphatic: no easy bruising, no easy bleeding, no gland swelling Allergic/Immunologic: no urticaria, no angioedema. PAST MEDICAL HISTORY: hypertension, diabetes PAST SURGICAL HISTORY: c/section X 2 SOCIAL HISTORY: no tobacco or drug use, alcohol FAMILY HISTORY: Hypertension, diabetes Past History Social history: no significant social history Medications and Allergies Allergies Allergy/AdvReac Type Severity Reaction Status Date / Time latex AdvReac Rash Verified 10/26/17 07:30 Home Medications Medication Instructions Recorded Confirmed Last Taken Type Aspirin BABY CHEW TAB 81 mg PO DAILY 10/29/16 10/26/17 10/25/17 History Insulin Regular, Human 10 units SUB-Q QAMDIAB 10/29/16 10/26/17 10/25/17 History Labetalol 600 mg PO BID 10/29/16 10/26/17 10/26/17 History Vitamin 1 tab PO DAILY 10/29/16 10/26/17 10/25/17 History Insulin NPH, Human [NovoLIN N] 22 unit SQ QHS 10/26/17 10/26/17 10/25/17 History Insulin NPH, Human [NovoLIN N] 26 unit SQ QAMDIAB 10/26/17 10/26/17 10/25/17 History Insulin Regular, Human [Humulin R] 18 units SUB-Q QPM 10/26/17 10/26/17 History Valacyclovir HCl [Valtrex] 1 tab PO QDAY 10/26/17 10/26/17 10/25/17 History Clindamycin [Clindamycin CAP] 300 mg PO Q6H #28 capsule 10/29/17 Unknown Rx Ibuprofen [Motrin] 800 mg PO Q8HR PRN #30 tablet 10/29/17 Unknown Rx Labetalol [Normodyne TAB] 200 mg PO BID #60 tablet 10/29/17 Unknown Rx oxyCODONE /ACETAMINOPHEN [Percocet 1 tab PO Q6HR PRN #40 tablet 10/29/17 Unknown Rx 5/325] Labetalol [Normodyne TAB] 500 mg PO BID #60 tablet 11/05/17 Unknown Rx Nitrofurantoin Monohyd/M-Cryst 100 mg PO BID #14 capsule 11/05/17 Unknown Rx [Macrobid 100 mg Capsule] Active Meds: Active Medications Clindamycin HCl (Cleocin) 300 mg PO TID [facility] Last Admin: 11/05/17 21:06 Dose: 300 mg Dextrose (D50w (25gm) Syringe) 50 ml IV PRN PRN PRN Reason: Hypoglycemia Hydralazine HCl (Apresoline) 5 mg IV Q30MIN PRN PRN Reason: Hypertension Last Admin: 11/03/17 14:35 Dose: 5 mg Lactated Ringer's (Lactated Ringers) 1,000 mls @ 125 mls/hr IV DIRECT ALESSIA Last Admin: 11/04/17 14:09 Dose: 125 mls/hr Magnesium Sulfate (Magnesium Sulfate 40gm/1000ml) 40 gm in 1,000 mls @ 50 mls/ hr IV DIRECT ALESSIA Last Admin: 11/04/17 17:25 Dose: 2 gm/hr, 50 mls/hr Ceftriaxone Sodium 1 gm/ (Sodium Chloride) 20 mls @ 2 mls/min IV Q24HR [facility] Last Admin: 11/05/17 09:20 Dose: Not Given Ibuprofen (Motrin) 600 mg PO Q6H PRN PRN Reason: Pain, Mild (1-3) Insulin Human Regular (Humulin R) 0 units SUB-Q ACHS [facility]; Protocol Last Admin: 11/05/17 17:24 Dose: Not Given Labetalol HCl (Normodyne) 600 mg PO BID [facility] Last Admin: 11/05/17 22:07 Dose: 600 mg Metformin HCl (Glucophage) 500 mg PO BIDDIAB [facility] Last Admin: 11/05/17 17:24 Dose: Not Given Oxycodone/Acetaminophen (Percocet 5/325) 1 tab PO Q6H PRN PRN Reason: Pain, Moderate (4-6) Exam - Physical Exam Narrative exam: Gen. appearance: Patient lying in bed, no apparent distress HEENT: Normocephalic, atraumatic, pupils equally round and reactive to light, extraocular movement intact, and no sclericterus,. No JVD or thyromegaly or nodule,neck supple, no carotid bruit ,mucous membranes moist, no exudate or erythema Heart: S1, S2, regular rate and rhythm Lungs: Clear to auscultation bilaterally, breathing comfortable Abdomen: Positive bowel sounds, nontender, nondistended, no organomegaly Extremity: No edema, cyanosis, clubbing Skin: No rash, nodules, warm, dry Neuro: Oriented 3, cranial nerves II-12 intact, speech is fluent, motor and sensory intact - Constitutional Vitals: Temp Pulse Resp BP Pulse Ox 98.2 F 73 20 150/74 96 11/05/17 22:55 11/05/17 22:55 11/05/17 22:55 11/05/17 22:55 11/04/17 02:11 Results - Labs CBC & Chem 7: 11/03/17 14:06 11/03/17 14:06 Labs: Abnormal lab results 11/04/17 11/05/17 11/05/17 Range/Units 23:51 09:19 12:36 POC Glucose 119 H 59 L 109 H (70-105) Assessment and Plan Assessment Hypertension uncontrolled Plan Continue current management, labetalol was just increased Will follow along
[2017-11-06] MEDS: CLEOCIN PO SCH (09:12)
[2017-11-06] MEDS: GLUCOPHAGE PO SCH (09:51)
[2017-11-06] MEDS: NORMODYNE PO SCH (10:18)
--- NOTE | 2017-11-06 11:34 | Progress Note ---
Assessment and Plan A/P HD#3 for pree on mag for 24 hrs antihypertensive labetolol 600 mg UTI + wbc in urine ( addition of rocephin ) on macrobid po still with BP 150/70s appreciate medicine consult will look for direction of addition to mgt Subjective - Subjective Date of service: 11/06/17 Principal diagnosis: PP preeclampsia Patient reports: appetite normal, voiding normally, pain well controlled, flatus Objective - Vital Signs Latest vital signs: Vital Signs Temp Pulse Resp BP BP 11/06/17 10:18 80 157/77 11/06/17 07:09 99.1 F 94 H 18 158/80 11/06/17 04:25 98.0 F 63 20 152/78 11/05/17 23:55 98.2 F 73 20 150/74 11/05/17 22:07 88 168/99 11/05/17 20:00 98.0 F 78 20 167/88 11/05/17 16:58 98.3 F 18 150/82 11/05/17 12:29 98.2 F 18 155/91 Intake and Output 11/05/17 11/06/17 11/06/17 23:59 07:59 15:59 Intake Total 120 120 Balance 120 120 Intake: Oral 120 120 Other: Total, Intake Amount 120 120 # Voids Void 1 1 - Exam Breasts: Present: normal Cardiovascular: Present: Regular rate, Normal S1 Lungs: Present: Clear to auscultation Abdomen: Present: normal appearance, soft, normal bowel sounds. Absent: distention, tenderness, guarding Vulva: both: normal Uterus: Present: normal, firm, fundal height below umbilicus. Absent: bogginess , tenderness Extremities: Present: normal Deep Tendon Reflex Grade: Normal +2 Incision: Present: normal, dry - Labs Labs: Abnormal lab results 11/05/17 11/06/17 Range/Units 12:36 08:48 POC Glucose 109 H 59 L (70-105)
[2017-11-06] MEDS ORDERED: MACROBID PO SCH (12:00)
--- NOTE | 2017-11-06 15:32 | Progress Note ---
Assessment and Plan Assessment and plan: Hypertension; well controlled, most recent blood pressures 147/80 Continue Labetalol 600 twice a day Urinary tract infection; patient is on Macrobid Patient's symptoms resolved Medically stable for discharge Patient needs to see primary care physician upon discharge For her medical needs Plan of care discussed with the patient and her nurse I will sign off, thank you for this consult Call us when necessary History Interval history: Patient seen and examined ,Medical records reviewed New events reported by the nursing Patient feels better no new complaints Blood pressures are well controlled, most recent one 147/80 Vital signs reviewed Hospitalist Physical - Constitutional Vitals: Temp Pulse Resp BP Pulse Ox 99.1 F 80 18 157/77 96 11/06/17 07:09 11/06/17 10:18 11/06/17 07:09 11/06/17 10:18 11/04/17 02:11 General appearance: Present: no acute distress, well-nourished, obese - EENT Eyes: Present: PERRL, EOM intact - Neck Neck: Present: supple, normal ROM - Respiratory Respiratory effort: normal Respiratory: bilateral: diminished, negative: rales, rhonchi, wheezing - Cardiovascular Rhythm: regular Heart Sounds: Present: S1 & S2 - Extremities Extremities: no ischemia, No edema - Abdominal General gastrointestinal: soft, non-tender, non-distended, normal bowel sounds - Integumentary Integumentary: Present: clear, warm - Psychiatric Psychiatric: appropriate mood/affect, cooperative - Neurologic Neurologic: CNII-XII intact, moves all extremities Results - Labs CBC & Chem 7: 11/03/17 14:06 11/03/17 14:06 Labs: Laboratory Last Values WBC 6.7 K/mm3 (4.5-11.0) 11/03/17 14:06 RBC 4.17 M/mm3 (3.65-5.03) 11/03/17 14:06 Hgb 11.0 gm/dl (10.1-14.3) 11/03/17 14:06 Hct 33.1 % (30.3-42.9) 11/03/17 14:06 MCV 79 fl (79-97) 11/03/17 14:06 MCH 26 pg (28-32) L 11/03/17 14:06 MCHC 33 % (30-34) 11/03/17 14:06 RDW 17.6 % (13.2-15.2) H 11/03/17 14:06 Plt Count 270 K/mm3 (140-440) 11/03/17 14:06 Creatinine 0.6 mg/dL (0.7-1.2) L 11/03/17 14:06 Estimated GFR > 60 ml/min 11/03/17 14:06 POC Glucose 71 (70-105) 11/06/17 12:33 Uric Acid 6.1 mg/dL (3.5-7.6) 11/03/17 14:06 Magnesium 4.60 mg/dL (1.7-2.3) H 11/04/17 18:30 AST 39 units/L (5-40) 11/03/17 14:06 ALT 38 units/L (7-56) 11/03/17 14:06 Lactate Dehydrogenase 427 units/L (91-180) H 11/03/17 14:06 Urine Color Yellow (Yellow) 11/05/17 20:30 Urine Turbidity Clear (Clear) 11/05/17 20:30 Urine pH 6.0 (5.0-7.0) 11/05/17 20:30 Ur Specific [place] 1.009 (1.003-1.030) 11/05/17 20:30 Urine Protein <15 mg/dl mg/dL (Negative) 11/05/17 20:30 Urine Glucose (UA) Neg mg/dL (Negative) 11/05/17 20:30 Urine Ketones Neg mg/dL (Negative) 11/05/17 20:30 Urine Blood Mod (Negative) 11/05/17 20:30 Urine Nitrite Neg (Negative) 11/05/17 20:30 Urine Bilirubin Neg (Negative) 11/05/17 20:30 Urine Urobilinogen < 2.0 mg/dL (<2.0) 11/05/17 20:30 Ur Leukocyte Esterase Neg (Negative) 11/05/17 20:30 Urine WBC (Auto) < 1.0 /HPF (0.0-6.0) 11/05/17 20:30 Urine RBC (Auto) 1.0 /HPF (0.0-6.0) 11/05/17 20:30 U Epithel Cells (Auto) 2.0 /HPF (0-13.0) 11/03/17 15:35 Urine Mucus Few /HPF 11/03/17 15:35 Urine Yeast (Budding) Few /HPF 11/03/17 15:35
[2017-11-06 15:38] VITALS: BP 146/75
--- NOTE | 2017-11-06 15:48 | Event Note ---
Date: 11/06/17 Appreciate consult from hospitalist. will d/c home with 600 mg labetolol. Patietn to f/u with Dr. Guzman on next week and make appt with her Primary care as well to continue following BP.
--- NOTE | 2017-11-06 15:51 | Discharge Summary ---
Providers - Providers Date of Admission: 11/03/17 13:33 Date of discharge: 11/06/17 Attending physician: FABIAN ORTEGA 11/06/17 00:05 Consult to Physician [CONS] Routine Comment: Consulting Provider: URSULA PAGAN Physician Instructions: Reason For Exam: PP preeclampsia and HTN Primary care physician: AGNIESZKA MANCERA MD Hospitalization Reason for admission: other (PP preeclampsia ) Hospital course: Patient admitted for PP preeclapsia. She was started on Mag for 24hrs. USage of 600 mg Labetolol to control BP. Patient to f/u [facility]. Precautions given. Condition at discharge: Good Disposition: DC-01 TO HOME OR SELFCARE Plan - Discharge Medications Prescriptions: Labetalol [Normodyne TAB] 500 mg PO BID #60 tablet Nitrofurantoin Monohyd/M-Cryst [Macrobid 100 mg Capsule] 100 mg PO BID #14 capsule - Provider Discharge Summary Activity: routine, no sex for 6 weeks, no strenuous exercise Diet: routine Instructions: routine Additional instructions: [] Smoking cessation referral if applicable(refer to patient education folder for contact #) [] Refer to [facility]'s [facility] Booklet Call your doctor immediately for: * Fever > 100.5 * Heavy vaginal bleeding ( >1 pad per hour) * Severe persistent headache * Shortness of breath * Reddened, hot, painful area to leg or breast * Drainage or odor from incision. * Keep incision clean and dry at all times and follow doctor's instructions regarding bathing/showering - Follow up plan Follow up: AGNIESZKA MANCERA MD [Primary Care Provider] - 7 Days
== END 2017-11-06 17:05 | disposition home or self-care (01) | DRG 776 ==
LOC: UNDOADMIN 10:59 → 3A 10:59 → OB 13:33
PROVIDERS: ADMIT Obstetrics & Gynecology; ATTEND Internal Medicine
DX: O11.5 Pre-existing hypertension with pre-eclampsia, complicating the puerperium (principal); Z68.41 Body mass index [BMI] 40.0-44.9, adult; E66.01 Morbid (severe) obesity due to excess calories; O24.13 Pre-existing type 2 diabetes mellitus, in the puerperium; E11.9 Type 2 diabetes mellitus without complications; O99.215 Obesity complicating the puerperium; O86.20 Urinary tract infection following delivery, unspecified; Z71.3 Dietary counseling and surveillance; Z82.49 Family history of ischemic heart disease and other diseases of the circulatory system; Z83.3 Family history of diabetes mellitus; Z91.040 Latex allergy status
CPT/HCPCS: 36415; 81001; 82565; 82962; 83615; 83735; 84450; 84460; 84550; 85027; 87086; J0360; J0696; J3475; J7120

== ENCOUNTER 2020-08-09 15:53 | Emergency (ER) | payer BC ==
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
[2020-08-09 16:13] VITALS: BP 148/89
== END 2020-08-09 16:24 | disposition home or self-care (01) ==
LOC: ED 15:53
DX: Z36.2 Encounter for other antenatal screening follow-up (principal); Z91.040 Latex allergy status
CPT/HCPCS: 99282

== ENCOUNTER 2020-12-26 11:49 | Outpatient (CLI) | payer BC, OTHER ==
[2020-12-26] MEDS ORDERED: LACTATED RINGERS 1,000 ML IV ONE (12:34)
[2020-12-26 13:28] LABS: Bacteria,Urine 1+ /HPF (Negative); Bilirubin,Urine NEG (Negative); Blood,Urine NEG (Negative); Color,Urine Yellow (Yellow); Protein,Urine <15 mg/dL mg/dL (Negative); Urobilinogen,Urine < 2.0 mg/dL (<2.0)
[2020-12-26 14:24] VITALS: BP 149/88
--- NOTE | 2020-12-26 14:52 | Ultrasound Report ---
ULTRASOUND OBSTETRIC LIMITED INDICATION / CLINICAL INFORMATION: c/o leaking. Clinical Gestational Age (GA) in weeks, days: 24 and 6 TECHNIQUE: Transabdominal. COMPARISON: None available. FINDINGS: HEART RATE (beats per minute): 137 AMNIOTIC FLUID INDEX (cm) = 18.3 (normal = 7-24 cm) PRESENTATION: Cephalic. ADDITIONAL FINDINGS: None. IMPRESSION: 1. No significant abnormality. Signer Name: Nestor Moore MD Signed: 12/26/2020 2:47 PM Workstation Name: [id number]
== END 2020-12-26 15:49 | disposition home or self-care (01) ==
LOC: TRG 11:49 → APU 11:51 → TRG 15:49
PROVIDERS: ATTEND Obstetrics & Gynecology
DX: O09.892 Supervision of other high risk pregnancies, second trimester (principal); Z3A.24 24 weeks gestation of pregnancy
CPT/HCPCS: 36415; 76815; 81001; 84112

== ENCOUNTER 2021-02-04 15:05 | Outpatient (CLI) | payer BC, OTHER ==
[2021-02-04 17:50] VITALS: BP 154/76
--- NOTE | 2021-02-04 18:38 | Ultrasound Report ---
ULTRASOUND OBSTETRIC LIMITED ULTRASOUND BIOPHYSICAL PROFILE INDICATION / CLINICAL INFORMATION: Decreased movement. Clinical Gestational Age (GA): 30.4 weeks.days COMPARISON: 12/26/20. FINDINGS: BREATHING MOVEMENT = 2 GROSS BODY MOVEMENT = 2 TONE = 2 QUALITATIVE AMNIOTIC FLUID VOLUME = 2 TOTAL BIOPHYSICAL SCORE = 8/8 HEART RATE (beats per minute): 137 AMNIOTIC FLUID INDEX (cm) = 16.8 (normal = 7-24 cm) PRESENTATION: Cephalic. ADDITIONAL FINDINGS: None. IMPRESSION: Biophysical Score = 8/8 Signer Name: Heath Flores MD Signed: 02/04/2021 6:33 PM Workstation Name: [id number]
== END 2021-02-04 18:36 | disposition home or self-care (01) ==
LOC: TRG 15:05 → APU 15:10 → TRG 18:36
PROVIDERS: ATTEND Obstetrics & Gynecology
DX: O09.893 Supervision of other high risk pregnancies, third trimester (principal); Z3A.31 31 weeks gestation of pregnancy
CPT/HCPCS: 59025; 76815; 76819